=== PATIENT | male | born 1945 | race Caucasian/White ===

== ENCOUNTER → 2018-01-23 | Outpatient (CLI) | payer MEDICARE, BC ==
[~2018-01-23] MED LIST: REGADENOSON 0.4 MG/5 ML SYRINGE ONE
== END | disposition home or self-care (01) ==
LOC: CFH 07:38
PROVIDERS: ATTEND Internal Medicine Cardiovascular Disease
DX: I34.0 Nonrheumatic mitral (valve) insufficiency (principal)
CPT/HCPCS: 78452; 93017; 93306; A9502; J2785

== ENCOUNTER → 2018-02-23 | Outpatient (CLI) | payer MEDICARE, BC | END | disposition home or self-care (01) | LOC: RAD 12:25 | PROVIDERS: ATTEND Nurse Practitioner | DX: J98.6 Disorders of diaphragm (principal) | CPT/HCPCS: 71250; 76000 ==

== ENCOUNTER 2020-06-23 14:13 | Inpatient (IN) | payer MEDICARE, BC ==
[~2020-06-23] VITALS: Ht 175.3 cm; Wt 78.1 kg
[~2020-06-23 14:13] MED LIST changes: +ACET325T14 PO; +ALPRAZOLAM PO; +CELE200C PO; +CEPH-376 PO; +LEVO75TA5 PO; +MULT-717 PO; -REGADENOSON 0.4 MG/5 ML SYRINGE ONE; +SULF1TAB24 PO; +TRAM50TA2 PO; +VITAMIN B12 PO; +VITAMIN D3 PO
[2020-06-23] MEDS ORDERED: CHLORHEXIDINE 15 ML UDC PO ONE (15:00)
[2020-06-23] MEDS ORDERED: LACTATED RINGERS 1,000 ML IV SCH (15:00)
[2020-06-23] MEDS ORDERED: CHLORHEXIDINE 15 ML UDC ONE (15:02)
[2020-06-23] MEDS ORDERED: FENTANYL PF 100 MCG/2ML ONE ×2 (16:15→19:17)
[2020-06-23] MEDS: FENTANYL PF 100 MCG/2ML IV PRN ×4 (17:50→19:40)
[2020-06-23] MEDS ORDERED: MIDAZOLAM 1 MG/ML, 2ML ONE (17:55)
[2020-06-23] MEDS ORDERED: PROPOFOL 10 MG/ML, 20ML ONE (18:02)
[2020-06-23] MEDS ORDERED: CEFAZOLIN 1,000 MG ONE (18:02)
[2020-06-23] MEDS ORDERED: ONDANSETRON 2MG/ML, 2ML ONE (18:02)
[2020-06-23] MEDS ORDERED: SUCCINYLCHOLINE 20 MG/ML, 10ML ONE (18:02)
[2020-06-23] MEDS ORDERED: ROCURONIUM 10 MG/ML,10ML ONE (18:02)
[2020-06-23] MEDS ORDERED: HYDROcodone/APAP 7.5-325MG/15ML UDC PO PRN (18:30)
[2020-06-23] MEDS ORDERED: MEPERIDINE/PF 25MG/0.5ML IVPush PRN (18:30)
[2020-06-23] MEDS ORDERED: ONDANSETRON 2MG/ML, 2ML IVPush PRN (18:30)
[2020-06-23] MEDS ORDERED: OXYcodone 5 MG/5 ML ORAL.SOL UDC PO PRN (18:30)
[2020-06-23] MEDS ORDERED: OXYcodone 5 MG/5 ML ORAL.SOL UDC ONE (19:17)
[2020-06-23] MEDS ORDERED: HYDROmorphone 1 MG/ML, 1ML INJ ONE (19:58)
[2020-06-23] MEDS: HYDROmorphone 1 MG/ML, 1ML INJ IVPush PRN ×2 (20:00→20:10)
[2020-06-23] MEDS: SULFAMETH./TRIMETHOPRIM DS 800MG/160MG TABLET PO SCH (21:17)
[2020-06-23] MEDS ORDERED: ONDANSETRON 2MG/ML, 2ML IV PRN (21:30)
[2020-06-23] MEDS ORDERED: HYDROmorphone 1 MG/ML, 1ML INJ IM PRN (21:30)
[2020-06-23] MEDS ORDERED: OXYcodone/APAP 5/325MG TABLET PO PRN (21:30)
[2020-06-23 23:42] VITALS: BP 134/80
[2020-06-24 02:54] VITALS: BP 130/81
[2020-06-24 04:08] VITALS: BP 121/73
[2020-06-24] MEDS: CEPHALEXIN 500 MG CAPSULE PO SCH ×4 (06:00→21:29)
[2020-06-24] MEDS: LEVOTHYROXINE 75 MCG TABLET PO SCH (06:01)
[2020-06-24 07:04] VITALS: BP 122/74
[2020-06-24] MEDS: CHOLECALCIFEROL 400 UNITS TABLET PO SCH (09:08)
[2020-06-24] MEDS: CYANOCOBALAMIN 1,000 MCG TABLET PO SCH (09:09)
[2020-06-24] MEDS: MULTIVITAMINS/MINERALS TABLET PO SCH (09:09)
[2020-06-24] MEDS: SULFAMETH./TRIMETHOPRIM DS 800MG/160MG TABLET PO SCH ×2 (09:09→21:28)
[2020-06-24 13:10] VITALS: BP 101/63
[2020-06-24 17:56] VITALS: BP 112/67
[2020-06-24 18:21] VITALS: BP 112/67
[2020-06-25 04:07] VITALS: BP 126/74
[2020-06-25] MEDS: LEVOTHYROXINE 75 MCG TABLET PO SCH (06:05)
[2020-06-25] MEDS: CEPHALEXIN 500 MG CAPSULE PO SCH ×4 (06:06→20:34)
[2020-06-25 06:51] VITALS: BP 114/71
[2020-06-25] MEDS: CHOLECALCIFEROL 400 UNITS TABLET PO SCH (10:06)
[2020-06-25] MEDS: SULFAMETH./TRIMETHOPRIM DS 800MG/160MG TABLET PO SCH ×2 (10:07→20:34)
[2020-06-25] MEDS: MULTIVITAMINS/MINERALS TABLET PO SCH (10:07)
[2020-06-25] MEDS: CYANOCOBALAMIN 1,000 MCG TABLET PO SCH (10:07)
[2020-06-25 15:07] VITALS: BP 107/67
[2020-06-25] MEDS ORDERED: CEPHALEXIN 250 MG CAPSULE ONE (15:22)
[2020-06-25 20:31] VITALS: BP 112/72
[2020-06-26 00:58] VITALS: BP 129/76
[2020-06-26] MEDS: LEVOTHYROXINE 75 MCG TABLET PO SCH (05:17)
[2020-06-26] MEDS: CEPHALEXIN 500 MG CAPSULE PO SCH ×3 (05:17→16:08)
[2020-06-26 06:33] VITALS: BP 120/73
[2020-06-26] MEDS: MULTIVITAMINS/MINERALS TABLET PO SCH (08:14)
[2020-06-26] MEDS: CHOLECALCIFEROL 400 UNITS TABLET PO SCH (08:14)
[2020-06-26] MEDS: CYANOCOBALAMIN 1,000 MCG TABLET PO SCH (08:14)
[2020-06-26] MEDS: SULFAMETH./TRIMETHOPRIM DS 800MG/160MG TABLET PO SCH (08:14)
[2020-06-26 14:12] VITALS: BP 124/71
[2020-06-26] MEDS ORDERED: ASPI81TA45 PO (16:13)
[2020-06-26 18:16] VITALS: BP 120/68
== END 2020-06-26 12:05 | disposition home or self-care (01) | DRG 264 ==
LOC: OUT 14:13 → 4NE 20:52 → OUT 22:56 → OBSVTOIN 22:57 → 4NE 22:57
PROVIDERS: ADMIT Orthopaedic Surgery; ATTEND Orthopaedic Surgery
PROC: 0JBN0ZZ Excision of Right Lower Leg Subcutaneous Tissue and Fascia, Open Approach (ICD-10-PCS; principal; 2020-06-26)
DX: I96 Gangrene, not elsewhere classified (principal); S89.81XA Other specified injuries of right lower leg, initial encounter; W11.XXXA Fall on and from ladder, initial encounter; Z79.899 Other long term (current) drug therapy; Y92.89 Other specified places as the place of occurrence of the external cause; Z20.822 Contact with and (suspected) exposure to COVID-19
CPT/HCPCS: 87635; 93005; G0378; J0690; J1170; J2250; J2405; J2704; J3010; J0330; J7120; Q4100